=== PATIENT | female | born 1985 | race Caucasian/White ===

== ENCOUNTER 2017-09-30 23:34 | Emergency (ER) | payer MEDICAID, OTHER ==
[2017-10-01] MEDS ORDERED: Diazepam TAB(*) 5 MG PO ONE ×2 (00:22→02:14)
--- NOTE | 2017-10-01 00:29 | ED ---
Back Pain - HPI Summary HPI Summary: Complains of waking up with mid back pain 3 days. Constant baseline aching, able to ambulate, with sharp spikes in pain caused by position and movement. Denies fall, trauma, heavy lifting, urinary retention, incontinence, radiation of pain down legs, fever, cough, sore throat, CP, SOB, N/V/D, abdominal pain, urinary symptoms, vaginal symptoms. LMP just finished. Denies IV drug use - History of Current Complaint Chief Complaint: EDBackInjuryPain Stated Complaint: BACK PAIN Time Seen by Provider: 10/01/17 00:13 Hx Last Menstrual Period: currently Pain Intensity: 7 - Allergies/Home Medications Allergies/Adverse Reactions: Allergies Allergy/AdvReac Type Severity Reaction Status Date / Time Penicillins Allergy Hives Verified 10/01/17 00:28 PMH/Surg Hx/FS Hx/Imm Hx Endocrine/Hematology History: Denies: Hx Diabetes Cardiovascular History: Reports: Hx Hypertension Denies: Hx Congestive Heart Failure Respiratory History: Reports: Hx Asthma History: Denies: Hx Renal Disease Infectious Disease History: No Infectious Disease History: Denies: Traveled Outside the [place] in Last 30 Days - Social History Alcohol Use: Occasionally Substance Use Type: Reports: None Smoking Status (MU): Former Smoker Review of Systems Constitutional: Negative Eyes: Negative ENT: Negative Cardiovascular: Negative Respiratory: Negative Gastrointestinal: Negative Genitourinary: Negative Positive: Other Skin: Negative Neurological: Negative Psychological: Normal All Other Systems Reviewed And Are Negative: Yes Physical Exam - Summary Physical Exam Summary: Mildly tender to palpation along paraspinal muscles of T spine and upper L- spine on right side. Patient able to lift leg to chest bilaterally, with some pain when doing so on the left side. No tenderness with palpation of gluteus bilaterally, or posterior thighs bilaterally. PMS intact distally on bilateral lower extremities. No evidence of mass, trauma, ecchymosis, erythema, extra warmth, deformity noted to back or gluteus bilaterally. Triage Information Reviewed: Yes Vital Signs On Initial Exam: Initial Vitals Temp Pulse Resp BP Pulse Ox 95.3 F 115 20 103/80 96 09/30/17 23:40 09/30/17 23:40 09/30/17 23:40 09/30/17 23:40 09/30/17 23:40 Vital Signs Reviewed: Yes Appearance: Positive: Well-Appearing Skin: Positive: Warm Head/Face: Positive: Normal Head/Face Inspection Eyes: Positive: Normal Neck: Positive: Supple Respiratory/Lung Sounds: Positive: Clear to Auscultation Cardiovascular: Positive: Normal Abdomen Description: Positive: Nontender Musculoskeletal: Positive: Normal Neurological: Positive: Normal Psychiatric: Positive: Normal AVPU Assessment: Alert - [place] Coma Scale Best Eye Response: 4 - Spontaneous Best Motor Response: 6 - Obeys Commands Best Verbal Response: 5 - Oriented Coma Scale Total: 15 Diagnostics - Vital Signs Vital Signs Temp Pulse Resp BP Pulse Ox 09/30/17 23:40 95.3 F 115 20 103/80 96 - Laboratory Lab Statement: Any lab studies that have been ordered have been reviewed, and results considered in the medical decision making process. Re-Evaluation - Re-Evaluation 1 Re-Evaluation Time: 01:27 Comment: Patient states pain not improved with Valium. Will not go to x-ray without stronger pain medication first. Patient states she cannot get up. Patient was seen ambulating around the ED prior to being callewc to exam room. Patient was laughing in the exam room prior to provider walking in. Patient also states she took hydrocodone unknown dose at home which did not touch the pain. 2 Re-Evaluation Time: 02:47 Comment: Patient states pain not improved with second Valium. Discussed patient with who recommended suggested Percocet here to help alleviate patient's present pain, and follow-up with Ortho. Back Pain Course/Dx - Course Course Of Treatment: Ref [id number] neg for opiate rx hx. patient just came off course of prednisone and does not want more prednisone. Patient has ulcerative colitis history so does not want take NSAIDs. Will do trial of short term prescription for Valium as muscle relaxer, and advised patient follow up with primary care and Ortho. Patient states pain is much worse. Has been explained to patient limitations on what can be done in the ED for back pain and to follow -up with Ortho. Patient has been given Percocet for pain here in the ED. Friend is driving her home - Diagnoses Provider Diagnoses: Back pain Discharge - Sign-Out/Discharge Documenting (check all that apply): Discharge/Admit/Transfer - Discharge Plan Condition: Stable Disposition: HOME Prescriptions: Diazepam TAB(*) [Valium TAB(*)] 5 mg PO TID PRN 3 Days #7 tab MDD 3 tabs PRN Reason: Pain Patient Education Materials: Sciatica (ED), Low Back Strain (ED), Lumbar Radiculopathy (ED), Lower Back Exercises (ED) Referrals: No Primary Care Phys,NOPCP [Primary Care Provider] - [facility] [Outside] Rickie Delcid MD [Medical Doctor] - Additional Instructions: Follow-up with primary care and [facility]. Return to the ED for any new or worsening symptoms - Billing Disposition and Condition Condition: STABLE Disposition: HOME
[2017-10-01] MEDS ORDERED: predniSONE TAB* 20 MG PO ONE (01:25)
[2017-10-01] MEDS ORDERED: Ketorolac INJ* 30 MG/ML 1 ML VIAL IM ONE (01:26)
[2017-10-01] MEDS ORDERED: oxyCODONE/Acetamin 5/325 MG* TAB PO ONE ×2 (02:46→02:57)
[2017-10-01] MEDS ORDERED: Morphine VIAL* 10 MG/ML 1 ML VIAL IM ONE (03:45)
[2017-10-01] MEDS ORDERED: Promethazine INJ(RESTRICTED)* 25 MG/ML 1 ML VIAL IM ONE (03:46)
[2017-10-01] MEDS ORDERED: PROCHLORPERAZINE INJ 5 MG/ML 2 ML VIAL IM ONE (04:09)
[2017-10-01] MEDS ORDERED: Morphine VIAL* 4 MG/ML VIAL (1 ml vial) IV ONE ×3 (04:26→05:00)
[2017-10-01 04:54] VITALS: BP 140/95
--- NOTE | 2017-10-01 05:05 | ED ---
Raymond Avilez Rebecca, scribed for Lemuel Rodriguez MD on 10/01/17 at 0346 . Progress - Progress Note Progress Note: Pt is a 32 y/o F with a Hx of chronic lower back pain that was seen by NELY Briggs. She was given multiple medications for the back pain. The patient states that she feels like she is having significant back spasms without radiation with no urinary or bowel symptoms. Denies a history of trauma. The pt walked to the ED and now, after being discharged by the PA, she was requesting a second opinion. On examination she has lumbosacral tenderness and a positive left straight leg test above 30 degrees. She is neurologically intact. Re-Evaluation - Re-Evaluation 1 Re-Evaluation Time: 04:47 Change: Improved Comment: After pt received Compazine and morphine IM, the pt is requesting to leave and go home, saying that she is feeling better now. 2 Re-Evaluation Time: 02:47 Comment: Patient states pain not improved with second Valium. Discussed patient with who recommended suggested Percocet here to help alleviate patient's present pain, and follow-up with Ortho. Course/Dx - Course Course Of Treatment: Pt is a 32 y/o F with a Hx of chronic lower back pain that was seen by NELY Briggs. She was given multiple medications for the back pain. The patient states that she feels like she is having significant back spasms without radiation with no urinary or bowel symptoms. Denies a history of trauma. The pt walked to the ED and now, after being discharged by the PA, she was requesting a second opinion. Upon speaking with the pt, she is requesting an MRI which we do not have now. Offered a CT instead, which she declined. Will be given morphine and compazine for her back pain then will be D/C. After morphine and compazine IM, she is requetsing to go home and reports that her pain has improved. - Diagnoses Provider Diagnoses: Back pain Discharge - Sign-Out/Discharge Documenting (check all that apply): Discharge/Admit/Transfer - D/C Home, Post- Discharge Follow Up - Discharge Plan Condition: Stable Disposition: HOME Prescriptions: Diazepam TAB(*) [Valium TAB(*)] 5 mg PO TID PRN 3 Days #7 tab MDD 3 tabs PRN Reason: Pain Patient Education Materials: Sciatica (ED), Low Back Strain (ED), Lumbar Radiculopathy (ED), Lower Back Exercises (ED) Referrals: [facility] [Outside] No Primary Care Phys,NOPCP [Primary Care Provider] - Rickie Delcid MD [Medical Doctor] - Additional Instructions: Follow-up with primary care and [facility]. Return to the ED for any new or worsening symptoms - Billing Disposition and Condition Condition: STABLE Disposition: HOME The documentation as recorded by the Raymond sanchez Rebecca accurately reflects the service I personally performed and the decisions made by me, Lemuel Rodriguez MD.
== END 2017-10-01 04:53 | disposition home or self-care (01) ==
LOC: ED 23:34
DX: G89.29 Other chronic pain (principal); M54.5 Low back pain; Z88.0 Allergy status to penicillin; Z87.891 Personal history of nicotine dependence
CPT/HCPCS: 96372; 96374; 99282; A9270-GY; J0780; J1885; J2270; J2550; J7512